=== PATIENT | male | born 1950 | race African-American/Black ===

== ENCOUNTER 2022-09-30 01:03 | Emergency (ER) | payer MEDICARE ==
[~2022-09-30] VITALS: Ht 165.1 cm; Wt 73.4 kg
[2022-09-30 01:40] VITALS: BP 118/70
== END 2022-09-30 05:13 | disposition home or self-care (01) ==
LOC: ER 01:03
DX: Z43.6 Encounter for attention to other artificial openings of urinary tract (principal); T83.511A Infection and inflammatory reaction due to indwelling urethral catheter, initial encounter; Y82.8 Other medical devices associated with adverse incidents; Y92.9 Unspecified place or not applicable; N40.0 Benign prostatic hyperplasia without lower urinary tract symptoms; K21.9 Gastro-esophageal reflux disease without esophagitis; Z87.440 Personal history of urinary (tract) infections
CPT/HCPCS: 99281

== ENCOUNTER 2022-10-08 18:50 | Emergency (ER) | payer MEDICARE ==
[~2022-10-08] VITALS: Ht 172.7 cm; Wt 86.0 kg
[2022-10-08 19:18] VITALS: BP 151/81
[2022-10-09 00:25] LABS: CLARITY URINE CLEAR (CLEAR); COLOR URINE YELLOW (YELLOW); KETONES URINE NEGATIVE (NEGATIVE); LEUKOCYTE ESTERASE URINE NEGATIVE (NEGATIVE); NITRITE URINE NEGATIVE (NEGATIVE); OCCULT BLOOD URINE NEGATIVE (NEGATIVE); PH URINE 6.5 (4.5-8.0); PROTEIN URINE NEGATIVE (NEGATIVE); SPECIFIC GRAVITY URINE 1.006 (1.005-1.030); UROBILINOGEN URINE 0.2 E.U./dL (0.2-1.0)
== END 2022-10-09 01:00 | disposition home or self-care (01) ==
LOC: ER 18:50
DX: N40.1 Benign prostatic hyperplasia with lower urinary tract symptoms (principal); R33.8 Other retention of urine; K21.9 Gastro-esophageal reflux disease without esophagitis; E78.00 Pure hypercholesterolemia, unspecified
CPT/HCPCS: 36415; 80048; 81003; 99283

== ENCOUNTER 2022-11-30 05:22 | Emergency (ER) | payer MEDICARE ==
[~2022-11-30] VITALS: Ht 165.1 cm; Wt 75.3 kg
[~2022-11-30 05:22] MED LIST: TOPUD PO
[2022-11-30 05:29] VITALS: BP 153/85
== END 2022-11-30 06:00 | disposition left against medical advice (07) ==
LOC: ER 05:22
DX: Z53.21 Procedure and treatment not carried out due to patient leaving prior to being seen by health care provider (principal); N40.0 Benign prostatic hyperplasia without lower urinary tract symptoms

== ENCOUNTER 2023-02-08 03:56 | Emergency (ER) | payer MEDICARE, OTHER ==
[~2023-02-08] VITALS: Ht 165.1 cm; Wt 70.0 kg
[2023-02-08 04:01] VITALS: BP 142/72
[2023-02-08 04:30] LABS: BASOPHILS % 1.2 % (0.0-2.0); HEMOGLOBIN. 13.2 g/dL (14.0-18.0)
[2023-02-08 04:33] LABS: EOSINOPHILS % 4.8 % (0.0-5.0); HEMATOCRIT. 39.2 % (42.0-52.0); LYMPHOCYTES % 35.7 % (20.0-50.0); MEAN CORPUSCULAR HEMOGLOBIN 29.8 pg (28.0-32.0); MEAN CORPUSCULAR VOLUME 88.3 fL (80.0-94.0); MEAN PLATELET VOLUME 8.8 fl (7.4-10.4); MONOCYTES % 9.2 % (2.0-8.0); NEUTROPHILS % 49.1 % (40.0-76.0); PLATELET 279 x1000/uL (130-400); RED BLOOD CELL COUNT 4.44 mill/uL (4.7-6.1); RED CELL DISTRIBUTION WIDTH 15.1 % (11.6-14.6)
[2023-02-08 04:36] LABS: CHLORIDE 105 mEq/L (98-107)
== END 2023-02-08 05:35 | disposition home or self-care (01) ==
LOC: ER 03:56
DX: R33.9 Retention of urine, unspecified (principal); E78.00 Pure hypercholesterolemia, unspecified
CPT/HCPCS: 36415; 51702; 80053; 85025; 99283; 99284